=== PATIENT | male | born 1990 | race Caucasian/White ===

== ENCOUNTER 2021-06-09 12:57 | Emergency (ER) | payer OTHER ==
[~2021-06-09 12:57] MED LIST: NAPROSYN375 MG PO
[2021-06-09] MEDS ORDERED: NAPROXEN500 MG PO (14:24)
[2021-06-09] MEDS ORDERED: CYCLOBENZAPRINE10 MG PO (14:24)
== END 2021-06-09 14:45 | disposition home or self-care (01) ==
LOC: FER 12:57
DX: S39.012A Strain of muscle, fascia and tendon of lower back, initial encounter (principal); J45.909 Unspecified asthma, uncomplicated; F17.210 Nicotine dependence, cigarettes, uncomplicated; X50.9XXA Other and unspecified overexertion or strenuous movements or postures, initial encounter
CPT/HCPCS: 72110; J1885

== ENCOUNTER 2022-03-14 09:44 | Emergency (ER) | payer OTHER ==
[~2022-03-14 09:44] MED LIST changes: +CYCLOBENZAPRINE10 MG PO; +NAPROXEN500 MG PO
== END 2022-03-14 13:05 | disposition other institution (70) ==
LOC: FER 09:44
DX: S56.321A Laceration of extensor or abductor muscles, fascia and tendons of right thumb at forearm level, initial encounter (principal); F17.210 Nicotine dependence, cigarettes, uncomplicated; W29.8XXA Contact with other powered hand tools and household machinery, initial encounter; Y93.9 Activity, unspecified; Y92.89 Other specified places as the place of occurrence of the external cause; Y99.0 Civilian activity done for income or pay
CPT/HCPCS: 73130; J0690; J1170; J2405